=== PATIENT | male | born 1935 | race Two or more races ===

== ENCOUNTER 2020-12-24 11:50 | Observation (INO) | payer OTHER, MEDICAID ==
[~2020-12-24] VITALS: Ht 172.7 cm; Wt 67.7 kg
[~2020-12-24 11:50] MED LIST: GABA100C9 OR; GLYB5TAB8 OR; HYDR-1421 OR; OMEP5TAB OR
[2020-12-24] MEDS ORDERED: SODIUM CHLORIDE 0.9% 1,000 ML IV ONE (12:00)
[2020-12-24 12:32] LABS: Basophils # (auto) 0 10 ^3/uL (0-0.2); Basophils % (auto) 0.4 % (0.0-2.0); Eosinophils # (auto) 0 10 ^3/uL (0-0.8); Eosinophils % (auto) 0.8 % (0.0-7.0); Hemoglobin 11.4 g/dL (13.5-17.5); Lymphocytes # (auto) 0.7 10 ^3/uL (0.4-5.4); Lymphocytes % (auto) 13.8 % (10.0-50.0); Mean Corpuscular Hemoglobin 30.4 pg (28.0-32.0); Mean Corpuscular Hgb Conc. 33.4 g/dL (32.0-36.0); Mean Corpuscular Volume 90.8 fL (80.0-100.0); Monocytes # (auto) 0.5 10 ^3/uL (0-1.3); Monocytes % (auto) 9.1 % (0.0-12.0); Neutrophils # (auto) 3.9 10 ^3/uL (1.6-8.6); Neutrophils % (auto) 75.9 % (37.0-80.0); Nucleated Red Blood Cells % 0.1 %; Platelet Count (auto) 231 10^3/uL (140-450); Red Blood Cells 3.75 10^6/uL (4.5-5.90); Red Cell Distribution Width 14.7 % (11.8-14.3); White Blood Cell 5.2 10^3/uL (4.4-10.8)
[2020-12-24 12:47] LABS: INR 1.07 (0.9-1.15); Partial Thromboplastin Time 34.2 sec (23.0-31.2)
[2020-12-24 12:50] LABS: Albumin 2.1 g/dL (3.4-5.0); Anion Gap 7 (5-15); Blood Urea Nitrogen 24 mg/dL (7-18); Calcium 7.8 mg/dL (8.5-10.1); Carbon Dioxide 20 mmol/L (21-32); Chloride 105 mmol/L (98-107); Glucose 77 mg/dL (74-106); Potassium 3.9 mmol/L (3.5-5.1); Sodium 132 mmol/L (136-145)
[2020-12-24 12:57] LABS: Alanine Aminotransferase 42 U/L (16-61); Alkaline Phosphatase 886 U/L (45-117); Aspartate Aminotransferase 104 U/L (15-37); BUN/Creatinine Ratio 12.2; Bilirubin, Total 1.4 mg/dL (0.2-1.0); GFR African American 42 mL/min; GFR Non-African American 35 mL/min; Total Protein 7.5 g/dL (6.4-8.2)
[2020-12-24] MEDS ORDERED: LORazepam 2MG/ML-1ML VIAL ONE (15:45)
[2020-12-24] MEDS ORDERED: DEXTROSE 10% 1,000 ML IV ONE (16:15)
[2020-12-24] MEDS ORDERED: OXYCODONE W/ ACETAMINOPHEN 5/325MG TABLET PO ONE (23:00)
[2020-12-24] MEDS ORDERED: DEXTROSE 10% 1,000 ML IV SCH (23:30)
[2020-12-25] MEDS ORDERED: NITROGLYCERIN 0.4 MG SL TAB SL PRN (01:00)
[2020-12-25] MEDS ORDERED: OXYCODONE W/ ACETAMINOPHEN 5/325MG TABLET PO PRN (01:00)
[2020-12-25] MEDS ORDERED: ONDANSETRON HCL 4 MG/2 ML VIAL IV PRN (01:00)
[2020-12-25] MEDS ORDERED: DEXTROSE 10% 1,000 ML IV ONE (01:00)
[2020-12-25 02:04] LABS: Basophils # (auto) 0 10 ^3/uL (0-0.2); Basophils % (auto) 0.3 % (0.0-2.0); Eosinophils # (auto) 0.1 10 ^3/uL (0-0.8); Eosinophils % (auto) 0.8 % (0.0-7.0); Hematocrit 30.3 % (41.0-53.0); Hemoglobin 9.9 g/dL (13.5-17.5); Lymphocytes # (auto) 0.9 10 ^3/uL (0.4-5.4); Lymphocytes % (auto) 15.1 % (10.0-50.0); Mean Corpuscular Hemoglobin 29.7 pg (28.0-32.0); Mean Corpuscular Hgb Conc. 32.6 g/dL (32.0-36.0); Mean Corpuscular Volume 91.1 fL (80.0-100.0); Monocytes # (auto) 0.6 10 ^3/uL (0-1.3); Monocytes % (auto) 9.3 % (0.0-12.0); Neutrophils # (auto) 4.6 10 ^3/uL (1.6-8.6); Neutrophils % (auto) 74.5 % (37.0-80.0); Nucleated Red Blood Cells % 0.1 %; Platelet Count (auto) 209 10^3/uL (140-450); Red Blood Cells 3.32 10^6/uL (4.5-5.90); Red Cell Distribution Width 14.6 % (11.8-14.3); White Blood Cell 6.2 10^3/uL (4.4-10.8)
[2020-12-25 02:20] LABS: Albumin 1.8 g/dL (3.4-5.0); Calcium 7.5 mg/dL (8.5-10.1); Potassium 4.3 mmol/L (3.5-5.1)
[2020-12-25 02:22] LABS: BUN/Creatinine Ratio 10.6
[2020-12-25 02:26] LABS: Bilirubin, Total 1.2 mg/dL (0.2-1.0); Total Protein 6.2 g/dL (6.4-8.2)
[2020-12-25 03:57] VITALS: BP 136/65
[2020-12-25] MEDS ORDERED: INFLUENZA QUAD 2020-2021 0.5 ML SYRG IM ONE (06:30)
[2020-12-25] MEDS: metroNIDAZOLE 500 MG TAB PO SCH ×2 (06:48→13:26)
[2020-12-25 08:00] VITALS: BP 143/71
[2020-12-25 09:00] VITALS: BP 143/71
[2020-12-25] MEDS ORDERED: amLODIPine BESYLATE 5 MG TAB PO SCH (10:00)
[2020-12-25] MEDS ORDERED: CIPROFLOXACIN HYDROCHLORIDE 250 MG TAB PO SCH (10:00)
[2020-12-25 13:00] VITALS: BP 127/59
[2020-12-25 17:00] VITALS: BP 119/57
[2020-12-25 17:57] VITALS: BP 119/57
== END 2020-12-25 20:18 | disposition home or self-care (01) ==
LOC: EDBD 11:50 → ER 11:50 → EDSEX 11:50 → INTOOBSV 11:51 → TELE 11:51 → TELE-CENTR 12-25 03:57
PROVIDERS: ADMIT Hospitalist; ATTEND Hospitalist
DX: E11.649 Type 2 diabetes mellitus with hypoglycemia without coma (principal); Z20.822 Contact with and (suspected) exposure to COVID-19; R41.82 Altered mental status, unspecified; I12.9 Hypertensive chronic kidney disease with stage 1 through stage 4 chronic kidney disease, or unspecified chronic kidney disease; E11.22 Type 2 diabetes mellitus with diabetic chronic kidney disease; N18.30 Chronic kidney disease, stage 3 unspecified; Z88.0 Allergy status to penicillin; Z79.899 Other long term (current) drug therapy; Z95.0 Presence of cardiac pacemaker; Z23 Encounter for immunization
CPT/HCPCS: 36415; 70450; 71045; 74176; 80053; 82962; 83880; 84484; 85025; 85610; 85730; 87081; 87426; 90471; 90686; 96360; 96361; 99285; C9803; G0378; J2060; U0003; 96365; 96366